=== PATIENT | male | born 2000 | race Caucasian/White ===

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

== ENCOUNTER → 2023-03-10 | Outpatient (CLI) | payer OTHER ==
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
== END | disposition home or self-care (01) ==
LOC: RADXRYALE 13:55
PROVIDERS: ATTEND Physician Assistant
DX: S60.921A Unspecified superficial injury of right hand, initial encounter (principal); X58.XXXA Exposure to other specified factors, initial encounter

== ENCOUNTER → 2023-05-26 | Outpatient (CLI) | payer OTHER ==
--- NOTE | 2023-05-26 11:43 | US ---
EXAMINATION TYPE: US abdomen limited DATE OF EXAM: 05/26/2023 COMPARISON: NONE CLINICAL INDICATION: Male, 22 years old with history of R10.11 right upper quad pain, R94.5 abn labs; abnormal labs, drug and alcohol use TECHNIQUE: Multiple sonographic images of the right upper quadrant are obtained. FINDINGS: EXAM MEASUREMENTS: Liver Length: 12.2 cm Gallbladder Wall: 0.3 cm CBD: 0.1 cm Right Kidney: 9.6x4.1x5.4 cm [employer] MANAGER NOTES: Pancreas: Tail obscured by overlying bowel gas Liver: Within normal limits no evidence for ductal dilation or mass. Gallbladder: wnl Evidence for sonographic Koo's sign: No CBD: wnl Right Kidney: No hydronephrosis or masses seen exam slightly limited by bowel gas IMPRESSION: No evidence for acute process.
== END | disposition home or self-care (01) ==
LOC: RADUSWWP 10:50
PROVIDERS: ATTEND Family Medicine
DX: R10.11 Right upper quadrant pain (principal); R94.5 Abnormal results of liver function studies
CPT/HCPCS: 76705

== ENCOUNTER 2023-06-10 16:27 | Emergency (ER) | payer OTHER ==
--- NOTE | 2023-06-10 16:43 | ED ---
General Adult HPI - General Source: patient, RN notes reviewed Mode of arrival: ambulatory Limitations: no limitations <Sophia Larkin - Last Filed: 06/10/23 16:41> <Jose Yuan - Last Filed: 06/10/23 20:01> - General Chief complaint: GI Bleed Stated complaint: blood in stool - History of Present Illness Initial comments: 22-year-old male presents emergency department chief complaint of GI bleed. He notes that today he went to have a bowel movement after work and noticed bright red blood in the toilet. No history of this. He denies any abdominal pain, rectal pain. Denies fever, chills. (Sophia Larkin) 22-year-old male presents to the ED with a chief complaint of blood in the stool. Patient states he had a bowel movement today and noticed some bright red blood in the stool. No abdominal pain with this. No rectal pain. No changes in bowel or bladder habits. No fever. No chest pain or shortness of breath. No dizziness or lightheadedness. No other complaints. (Jose Yuan) - Related Data Home Medications Medication Instructions Recorded Confirmed Ibuprofen [Motrin Ib] 400 mg PO DAILY 11/11/18 11/11/18 Previous Rx's Medication Instructions Recorded Amoxicillin 500 mg PO Q12HR 10 Days #20 cap 11/11/18 Allergies Allergy/AdvReac Type Severity Reaction Status Date / Time latex Allergy PASSES OUT Verified 06/10/23 16:40 Review of Systems ROS Other: All systems not noted in ROS Statement are negative. <Sophia Larkin - Last Filed: 06/10/23 16:41> ROS Other: All systems not noted in ROS Statement are negative. <Jose Yuan - Last Filed: 06/10/23 20:01> ROS Statement: Those systems with pertinent positive or pertinent negative responses have been documented in the HPI. Past Medical History Past Medical History: No Reported History History of Any Multi-Drug Resistant Organisms: None Reported Past Surgical History: No Surgical Hx Reported Past Psychological History: No Psychological Hx Reported Past Alcohol Use History: None Reported Past Drug Use History: Marijuana <Sophia Larkin - Last Filed: 06/10/23 16:41> General Exam Limitations: no limitations <Sophia Larkin - Last Filed: 06/10/23 16:41> General appearance: alert, in no apparent distress Eye exam: Present: normal appearance Neck exam: Present: normal inspection GI/Abdominal exam: Present: soft (No Tenderness to palpation. No rebound guarding or rigidity.), normal bowel sounds exam: Present: other (No external hemorrhoids. No gross bleeding. No internal hemorrhoids palpated.) Neurological exam: Present: alert, oriented X3 <Jose Yuan - Last Filed: 06/10/23 20:01> - General Exam Comments Initial Comments: Visual Physical Exam Vital signs reviewed General: Well-appearing, nontoxic, no acute distress. Head: Normocephalic, atraumatic Eyes: PERRLA, EOMI ENT: Airway patent Chest: Nonlabored breathing Skin: No visual rash, normal skin tone Neuro: Alert and oriented 3 Musculoskeletal: No gross abnormalities (Sophia Larkin) Course Vital Signs 06/10/23 06/10/23 16:38 18:35 Temperature 98.4 F Pulse Rate 108 H 98 Respiratory 18 18 Rate Blood Pressure 149/80 136/81 O2 Sat by Pulse 99 97 Oximetry Medical Decision Making <Sophia Larkin - Last Filed: 06/10/23 16:41> - Lab Data Result diagrams: 06/10/23 17:34 06/10/23 17:34 <Jose Yuan - Last Filed: 06/10/23 20:01> - Medical Decision Making Quick note performed by Sophia Larikn PA-C (Sophia Larkin) Was pt. sent in by a medical professional or institution ([facility], [facility], urgent care, hospital, or penitentiary...) When possible be specific @ -No Did you speak to anyone other than the patient for history (EMS, parent, family, police, friend...)? What history was obtained from this source @ -No Did you review nursing and triage notes (agree or disagree)? Why? @ -I reviewed and agree with nursing and triage notes Were old charts reviewed (outside hosp., previous admission, EMS record, old EKG, old radiological studies, urgent care reports/EKG's, penitentiary records)? Report findings @ -No old charts were reviewed Differential Diagnosis (chest pain, altered mental status, abdominal pain women, abdominal pain men, vaginal bleeding, weakness, fever, dyspnea, syncope, headache, dizziness, GI bleed, back pain, seizure, CVA, palpatations, mental health, musculoskeletal)? @ -Differential GI Bleed: Esophageal varices, aortoenteric fistula, Debora-Monsivais, gastritis, peptic ulcer disease, diverticulosis, inflammatory bowel disease, hemorrhoids, fissure, colitis, malignancy, Meckels diverticulum, this is not meant to be an all- inclusive list. EKG interpreted by me (3pts min.). @ -None X-rays interpreted by me (1pt min.). @ -[None don] CT intepreted by me (1pt min.). @ -[None don] U/S intrpreted by me (1pt. min.). @ -[None don] What teting was considered but not performed or refused? (CT, X-rays, U/S, lab s)? Why? @ -[None] Wht mes were considered but not given or refused? Why? @ -[None] Di youdiscuss the management of the patient with other professionals (professionals i.e. , PA, [facility] [facility], lab, RT, psych nurse, social service liaison, admiralty lawyer, teacher, [place] customs and border officer, case managers)? Give summary @ -[No] Was moing cessation discussed for >3mins.? @ -[No] Was riical care preformed (if so, how long)? @ -[No] Werethre social determinants of health that impacted care today? How? (Homelessness, low income, unemployed, alcoholism, drug addiction, transportation, low edu. Level, literacy, decrease access to med. care, [facility], rehab)? @ -[No] Was rohini de-escalation of care discussed even if they declined (Discuss DNR or withdrawal of care, Hospice)? DNR status @ -[No] Whatcomorbidities impacted this encounter? (DM, HTN, Smoking, COPD, CAD, Cancer, CVA, ARF, Chemo, Hep., AIDS, mental health diagnosis, sleep apnea, morbid obesity)? @ -[None] Wa patent admitted / discharged? Hospital course, mention meds given and route, prescriptions, significant lab abnormalities, going to OR and other pertinent info. @ -discharge 22-year-old male presenting with one episode of appearance of blood in the toilet after having a bowel movement earlier today. Laboratory studies reviewed. Labs including CBC, CMP unremarkable. Occult blood negative. Patient does admit to eating a lot of beets last night. At this time, patient discharged home in stable condition. Discussed return precautions patient verbalizes agreement. Undiagnosed new problem with uncertain prognosis? @ -No Drug Therapy requiring intensive monitoring for toxicity (Heparin, Nitro, Insulin, Cardizem)? @ -No Were any procedures done? @ -No Diagnosis/symptom? @ -Bloody stool appearanceAcute, r Chronic, or Acute on Chronic? @ -AcuteUncomplcated (without systemic symptoms) or Complicated (systemic symptoms)? @ -UncomplicatedSide efects of treatment? @ -[No] Exacrbtion, Progression, or Severe Exacerbation? @ -[No] Pose athreat to life or bodily function? How? (Chest pain, [place], [place], pneumonia, PE, COPD, DKA, ARF, appy, cholecystitis, CVA, Diverticulitis, Homicidal, Suicidal, threat to staff... and all critical care pts) @ -[No] (Jose Yuan) - Lab Data Lab Results 06/10/23 06/10/23 06/10/23 Range/Units 17:34 17:34 17:34 WBC 7.2 (3.8-10.6) k/uL RBC 4.86 (4.30-5.90) m/uL Hgb 13.9 (13.0-17.5) gm/dL Hct 43.1 (39.0-53.0) % MCV 88.8 (80.0-100.0) fL MCH 28.5 (25.0-35.0) pg MCHC 32.1 (31.0-37.0) g/dL RDW 12.4 (11.5-15.5) % Plt Count 225 (150-450) k/uL MPV 7.1 Neutrophils % 67 % Lymphocytes % 22 % Monocytes % 7 % Eosinophils % 0 % Basophils % 1 % Neutrophils # 4.8 (1.3-7.7) k/uL Lymphocytes # 1.6 (1.0-4.8) k/uL Monocytes # 0.5 (0-1.0) k/uL Eosinophils # 0.0 (0-0.7) k/uL Basophils # 0.0 (0-0.2) k/uL PT 11.8 (10.0-12.5) sec INR 1.1 (<1.2) APTT 25.5 (22.0-30.0) sec Sodium 138 (137-145) mmol/L Potassium 4.2 (3.5-5.1) mmol/L Chloride 104 (98-107) mmol/L Carbon Dioxide 22 (22-30) mmol/L Anion Gap 12 mmol/L BUN 13 (9-20) mg/dL Creatinine 0.86 (0.66-1.25) mg/dL Est GFR (CKD-EPI)AfAm >90 (>60 ml/min/1.73 sqM) Est GFR (CKD-EPI)NonAf >90 (>60 ml/min/1.73 sqM) Glucose 96 (74-99) mg/dL Calcium 9.9 (8.4-10.2) mg/dL Total Bilirubin 0.4 (0.2-1.3) mg/dL AST 32 (17-59) U/L ALT 48 (4-49) U/L Alkaline Phosphatase 80 (38-126) U/L Total Protein 7.5 (6.3-8.2) g/dL Albumin 4.7 (3.5-5.0) g/dL Lipase 107 (23-300) U/L Stool Occult Blood (Negative) Blood Type Blood Type Recheck Bld Type Recheck Status Antibody Screen Spec Expiration Date 06/10/23 06/10/23 Range/Units 17:34 18:11 WBC (3.8-10.6) k/uL RBC (4.30-5.90) m/uL Hgb (13.0-17.5) gm/dL Hct (39.0-53.0) % MCV (80.0-100.0) fL MCH (25.0-35.0) pg MCHC (31.0-37.0) g/dL RDW (11.5-15.5) % Plt Count (150-450) k/uL MPV Neutrophils % % Lymphocytes % % Monocytes % % Eosinophils % % Basophils % % Neutrophils # (1.3-7.7) k/uL Lymphocytes # (1.0-4.8) k/uL Monocytes # (0-1.0) k/uL Eosinophils # (0-0.7) k/uL Basophils # (0-0.2) k/uL PT (10.0-12.5) sec INR (<1.2) APTT (22.0-30.0) sec Sodium (137-145) mmol/L Potassium (3.5-5.1) mmol/L Chloride (98-107) mmol/L Carbon Dioxide (22-30) mmol/L Anion Gap mmol/L BUN (9-20) mg/dL Creatinine (0.66-1.25) mg/dL Est GFR (CKD-EPI)AfAm (>60 ml/min/1.73 sqM) Est GFR (CKD-EPI)NonAf (>60 ml/min/1.73 sqM) Glucose (74-99) mg/dL Calcium (8.4-10.2) mg/dL Total Bilirubin (0.2-1.3) mg/dL AST (17-59) U/L ALT (4-49) U/L Alkaline Phosphatase (38-126) U/L Total Protein (6.3-8.2) g/dL Albumin (3.5-5.0) g/dL Lipase (23-300) U/L Stool Occult Blood Negative (Negative) Blood Type O Positive Blood Type Recheck O Pos Bld Type Recheck Status No Antibody Screen NEGATIVE Spec Expiration Date 06/13/2023 - 2333 Disposition <Sophia Larkin - Last Filed: 06/10/23 16:41> Is patient prescribed a controlled substance at d/c from ED?: No Time of Disposition: 20:01 <Jose Yuan - Last Filed: 06/10/23 20:01> Clinical Impression: Blood in stool Disposition: HOME SELF-CARE Additional Instructions: Please return to the Emergency Department if symptoms worsen or any other concerns. Follow up with your primary care provider. Referrals: Ignacio Sorto DO [Primary Care Provider] - 1-2 days
[2023-06-10 16:55] VITALS: RESP 18; TEMP 98.4
[2023-06-10 17:51] LABS: Basophils % (A) 1 %; Eosinophils % (A) 0 %; HCT 43.1 % (39.0-53.0); HGB 13.9 gm/dL (13.0-17.5); Lymphocytes # (A) 1.6 k/uL (1.0-4.8); Lymphocytes % (A) 22 %; MCH 28.5 pg (25.0-35.0); MCHC 32.1 g/dL (31.0-37.0); MCV 88.8 fL (80.0-100.0); Mean Platelet Volume 7.1; Monocytes # (A) 0.5 k/uL (0-1.0); Monocytes % (A) 7 %; Neutrophils # (A) 4.8 k/uL (1.3-7.7); Neutrophils % (A) 67 %; Platelet Count 225 k/uL (150-450); RBC 4.86 m/uL (4.30-5.90); RDW 12.4 % (11.5-15.5); WBC 7.2 k/uL (3.8-10.6)
[2023-06-10 18:09] LABS: INR 1.1 (<1.2); Partial Thromboplastin Time 25.5 sec (22.0-30.0); Prothrombin Time 11.8 sec (10.0-12.5)
[2023-06-10 18:31] LABS: ALT 48 U/L (4-49); AST 32 U/L (17-59); African American GFR (CKD) >90 (>60 ml/min/1.73 sqM); Albumin 4.7 g/dL (3.5-5.0); Alkaline Phosphatase 80 U/L (38-126); Anion Gap 12 mmol/L; Blood Urea Nitrogen 13 mg/dL (9-20); Calcium 9.9 mg/dL (8.4-10.2); Carbon Dioxide 22 mmol/L (22-30); Chloride 104 mmol/L (98-107); Glucose 96 mg/dL (74-99); Lipase 107 U/L (23-300); Non-African American GFR(CKD) >90 (>60 ml/min/1.73 sqM); Potassium 4.2 mmol/L (3.5-5.1); Sodium 138 mmol/L (137-145); Total Bilirubin 0.4 mg/dL (0.2-1.3); Total Protein 7.5 g/dL (6.3-8.2)
[2023-06-10 18:51] VITALS: BP 136/81; PULSE 98
== END 2023-06-10 20:10 | disposition home or self-care (01) ==
LOC: EC 16:27
DX: K92.1 Melena (principal); F12.90 Cannabis use, unspecified, uncomplicated; Z91.040 Latex allergy status
CPT/HCPCS: 36415; 80053; 82272; 83690; 85025; 85610; 85730; 86850; 86900; 86901; 99284

== ENCOUNTER 2024-03-16 17:01 | Emergency (ER) | payer OTHER ==
[2024-03-16 17:04] VITALS: PULSE 84
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
--- NOTE | 2024-03-16 18:32 | XR ---
EXAMINATION TYPE: XR tibia fibula RT DATE OF EXAM: 03/16/2024 COMPARISON: 03/15/2003 HISTORY: Abrasion lateral distal right tibia and fibula TECHNIQUE: 2 view right tibia and fibula FINDINGS: No acute fracture or dislocation evident. Soft tissues are normal. No radiopaque foreign shalini dies evident. Joint spaces are preserved. Follow up exams can be performed 7-10 days from acute trauma for continued pain. IMPRESSION: 1. No acute osseous abnormalities tibia and fibula. [facility], , 03/16/2024 6:30 PM
[2024-03-16 19:04] VITALS: BP 122/81; RESP 18; TEMP 98.3
== END 2024-03-16 19:18 | disposition home or self-care (01) ==
LOC: EC 17:01
DX: S89.91XA Unspecified injury of right lower leg, initial encounter
CPT/HCPCS: 99283

== ENCOUNTER 2024-12-05 18:58 | Inpatient (IN) | payer OTHER, MEDICAID ==
--- NOTE | 2024-12-05 20:01 | ED ---
General Adult HPI <GermanKeri - Last Filed: 12/05/24 22:06> - General Source: patient, EMS Mode of arrival: EMS Limitations: no limitations <Eugene Duffy - Last Filed: 12/07/24 16:20> - General Chief complaint: Psychiatric Symptoms Stated complaint: mental health Time Seen by Provider: 12/05/24 19:00 - History of Present Illness Initial comments: Patient presents to the ED by ambulance for evaluation. Patient states that he has been having a lot of "stress" in his life, and he states that he has felt depressed and has been having suicidal thoughts. Patient states that he has felt this way for the past year or so. Patient denies suicidal plan or attempt. Patient admits to occasional alcohol use, but he denies any alcohol use today. Patient also admits to marijuana use, and he states that he last used marijuana earlier today. Patient denies any other illicit drug use. Patient denies medication abuse or overdose, trauma or injury, homicidal ideations, hallucinations, any pain, fever or chills, dyspnea, dizziness, nausea or vomiting, or any other symptoms or complaints. (Eugene Duffy) - Related Data Previous Rx's Medication Instructions Recorded QUEtiapine [SEROquel] 25 mg PO HS 30 Days tab 12/07/24 buPROPion XL [Wellbutrin XL] 150 mg PO DAILY 30 Days tab 12/07/24 Allergies Allergy/AdvReac Type Severity Reaction Status Date / Time latex Allergy PASSES OUT Verified 12/05/24 19:58 Review of Systems ROS Other: All systems not noted in ROS Statement are negative. <EnglishKeri - Last Filed: 12/05/24 22:06> ROS Other: All systems not noted in ROS Statement are negative. <Eugene Duffy - Last Filed: 12/07/24 16:20> ROS Statement: Those systems with pertinent positive or pertinent negative responses have been documented in the HPI. Past Medical History Past Medical History: No Reported History History of Any Multi-Drug Resistant Organisms: None Reported Past Surgical History: No Surgical Hx Reported Past Psychological History: No Psychological Hx Reported Smoking Status: Current every day smoker Past Alcohol Use History: None Reported Past Drug Use History: Marijuana <Eugene Duffy - Last Filed: 12/07/24 16:20> General Exam Limitations: no limitations General appearance: alert, in no apparent distress Head exam: Present: atraumatic Eye exam: Present: normal appearance, PERRL, EOMI ENT exam: Present: mucous membranes moist Respiratory exam: Present: normal lung sounds bilaterally. Absent: respiratory distress, wheezes, rales, rhonchi, stridor Cardiovascular Exam: Present: regular rate, normal rhythm, normal heart sounds, other (Normal radial pulses bilaterally) GI/Abdominal exam: Present: soft. Absent: distended, tenderness, guarding Extremities exam: Absent: pedal edema Neurological exam: Present: alert, oriented X3. Absent: motor sensory deficit Skin exam: Present: warm, dry, normal color <Eugene Duffy - Last Filed: 12/07/24 16:20> Course <Eugene Duffy - Last Filed: 12/07/24 16:20> Vital Signs 12/05/24 12/05/24 12/05/24 19:41 22:59 23:25 Temperature 98.4 F 97.9 F 98.8 F Pulse Rate 65 92 Pulse Rate [ 89 Right] Respiratory 20 17 18 Rate Blood Pressure 134/78 131/76 Blood Pressure 129/68 [Right Arm] O2 Sat by Pulse 99 99 97 Oximetry - Reevaluation(s) Reevaluation #1: 12/05/24 20:54 Patient was endorsed to oncoming ED physician Dr. Purvis (secondary to shift change) with EPS evaluation still pending. Dr. Purvis to take over care of the patient at this time. (Eugene Duffy) Medical Decision Making <Keri Purvis - Last Filed: 12/05/24 22:06> <Eugene Duffy - Last Filed: 12/07/24 16:20> - Medical Decision Making Was patient admitted / discharged? Hospital course, mention meds given and route, prescriptions, significant lab abnormalities, going to OR and other pertinent info. @Admitted to Psychiatric Floor - Patient signed out to myself pending EPS evaluation. Here for SI. Medically cleared. Undiagnosed new problem with uncertain prognosis? @ -[No] Drug Therapy requiring intensive monitoring for toxicity (Heparin, Nitro, Insulin, Cardizem)? @ -[No] Were any procedures done? @ -[No] Diagnosis/symptom? Suicidal ideation Acute, or Chronic, or Acute on Chronic? @acute Uncomplicated (without systemic symptoms) or Complicated (systemic symptoms)? uncomplicated Side effects of treatment? @ -[No] Exacerbation, Progression, or Severe Exacerbation? @ -[No] Poses a threat to life or bodily function? How? (Chest pain, [place], [place], pneumonia, PE, COPD, DKA, ARF, appy, cholecystitis, CVA, Diverticulitis, Homicidal, S uicidal, threat to staff... and all critical care pts) @Yes (German,Keri) Was pt. sent in by a medical professional or institution (, GEORGINA, LAN SPECIALIST, urgent care, hospital, or long term...) When possible be specific @ -No Did you speak to anyone other than the patient for history (EMS, parent, family, police, friend...)? What history was obtained from this source @ -No Did you review nursing and triage notes (agree or disagree)? Why? @ -I reviewed and agree with nursing and triage notes Were old charts reviewed (outside hosp., previous admission, EMS record, old EKG, old radiological studies, urgent care reports/EKG's, long term records)? Report findings @ -No old charts were reviewed Differential Diagnosis (chest pain, altered mental status, abdominal pain women, abdominal pain men, vaginal bleeding, weakness, fever, dyspnea, syncope, headache, dizziness, GI bleed, back pain, seizure, CVA, palpatations, mental health, musculoskeletal)? @ -Depression, anxiety, suicidal ideations, suicidal risk, psychiatric disease, drug abuse, alcohol abuse, this is not meant to be a complete list. EKG interpreted by me (3pts min.). @ -None done X-rays interpreted by me (1pt min.). @ -None done CT interpreted by me (1pt min.). @ -None done U/S interpreted by me (1pt. min.). @ -None done What testing was considered but not performed or refused? (CT, X-rays, U/S, labs)? Why? @ -None What meds were considered but not given or refused? Why? @ -None Did you discuss the management of the patient with other professionals (professionals i.e. GEORGINA Mclaughlin, LAN SPECIALIST, lab, RT, psych nurse, clinical social work therapist, brick washer, teacher, security flex utility officer, rifle case repairer)? Give summary @ -No Was smoking cessation discussed for >3mins.? @ -No Was critical care preformed (if so, how long)? @ -No Were there social determinants of health that impacted care today? How? (Homelessness, low income, unemployed, alcoholism, drug addiction, transportation, low edu. Level, literacy, decrease access to med. care, longterm, rehab)? @ -No Was there de-escalation of care discussed even if they declined (Discuss DNR or withdrawal of care, Hospice)? DNR status @ -No What co-morbidities impacted this encounter? (DM, HTN, Smoking, COPD, CAD, Cancer, CVA, ARF, Chemo, Hep., AIDS, mental health diagnosis, sleep apnea, morbid obesity)? @ -None Was patient admitted / discharged? Hospital course, mention meds given and route, prescriptions, significant lab abnormalities, going to OR and other pertinent info. @ -Patient was endorsed to oncoming ED physician Dr. Purvis (secondary to shift change) with EPS evaluation still pending. Dr. Purvis to take over care of the patient at this time. (Eugene Duffy) - Lab Data Lab Results 12/05/24 12/05/24 12/05/24 Range/Units 21:04 21:31 21:31 Urine Color Colorless Urine Appearance Clear (Clear) Urine pH 6.0 (5.0-8.0) Ur Specific [place] 1.019 (1.001-1.035) Urine Protein Negative (Negative) Urine Glucose (UA) Negative (Negative) Urine Ketones 1+ H (Negative) Urine Blood Negative (Negative) Urine Nitrite Negative (Negative) Urine Bilirubin Negative (Negative) Urine Urobilinogen <2.0 (<2.0) mg/dL Ur Leukocyte Esterase Negative (Negative) Urine Opiates Screen Not Detected (NotDetected) Ur Oxycodone Screen Not Detected (NotDetected) Urine Methadone Screen Not Detected (NotDetected) Ur Barbiturates Screen Not Detected (NotDetected) U Tricyclic Antidepress Not Detected (NotDetected) Ur Phencyclidine Scrn Not Detected (NotDetected) Ur Amphetamines Screen Not Detected (NotDetected) U Methamphetamines Scrn Not Detected (NotDetected) U Benzodiazepines Scrn Not Detected (NotDetected) Urine Cocaine Screen Detected H (NotDetected) U Marijuana (THC) Screen Detected H (NotDetected) SARS-CoV-2 (PCR) Not Detected (Not Detectd) Disposition <Keri Purvis - Last Filed: 12/05/24 22:06> Is patient prescribed a controlled substance at d/c from ED?: No <Eugene Duffy - Last Filed: 12/07/24 16:20> Clinical Impression: Suicidal ideations Disposition: TRANSFER TO PSYCH HOSP/UNIT
[2024-12-05 22:14] LABS: Opiate Screen,Urine Not Detected (NotDetected); Phencyclidine Screen,Urine Not Detected (NotDetected)
[2024-12-05 22:15] LABS: Amphetamine Screen,Urine Not Detected (NotDetected); Barbiturate Screen,Urine Not Detected (NotDetected); Benzodiazepines Screen,Urine Not Detected (NotDetected); Cocaine Screen,Urine Detected (NotDetected); Methadone Screen, Urine Not Detected (NotDetected); Oxycodone Screen, Urine Not Detected (NotDetected); Tricyclic Antidepressant,Urine Not Detected (NotDetected); Urn Cannabinoid Scrn Detected (NotDetected)
[2024-12-05] MEDS ORDERED: LORazepam 1 MG TAB PO PRN (22:42)
[2024-12-05] MEDS ORDERED: ACETAMINOPHEN TAB 325 MG TAB PO PRN (22:42)
[2024-12-05] MEDS ORDERED: traZODone HCL 50 MG TAB PO PRN (22:42)
[2024-12-05] MEDS ORDERED: HALOPERIDOL LACTATE 5 MG/ML 1 ML VIAL IM PRN (22:42)
[2024-12-05] MEDS ORDERED: haloperidoL 5 MG TAB PO PRN (22:42)
[2024-12-05] MEDS ORDERED: IBUPROFEN 600 MG TAB PO PRN (22:42)
[2024-12-05] MEDS ORDERED: LORazepam 2 MG/ML INJ IM PRN (22:42)
[2024-12-05] MEDS ORDERED: MAGNESIUM HYDROXIDE 2,400 MG/30 ML CUP PO PRN (22:42)
[2024-12-05] MEDS ORDERED: MAG HYDROX/AL HYDROX/SIMETH 355 ML BOTTLE PO PRN (22:42)
[2024-12-05 23:28] VITALS: RESP 18
[2024-12-06 02:45] LABS: Appearance,Urine Clear (Clear); Bilirubin,Urine Negative (Negative); Blood,Urine Negative (Negative); Color,Urine Colorless; Glucose,Urine (UA) Negative (Negative); Ketones,Urine 1+ (Negative); Leukocyte Esterase,Urine Negative (Negative); Nitrite,Urine Negative (Negative); Protein,Urine Negative (Negative); Specific Gravity,Urine 1.019 (1.001-1.035); Urobilinogen,Urine <2.0 mg/dL (<2.0)
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
[2024-12-06] MEDS: buPROPion XL 150 MG TAB.ER.24H PO SCH (10:57)
[2024-12-06] MEDS: NICOTINE 14MG/24HR PATCH TRANSDERM SCH (12:45)
[2024-12-06 14:40] VITALS: BMI 22.1
[2024-12-06] MEDS: QUEtiapine 25 MG TAB PO SCH (21:07)
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
[2024-12-07 10:05] VITALS: BP 107/67; PULSE 66; TEMP 97.8
== END 2024-12-07 11:11 | disposition home or self-care (01) | DRG 885 ==
LOC: EC 18:58 → 3MHU 22:31
PROVIDERS: ADMIT Psychiatry & Neurology Psychiatry; ATTEND Psychiatry & Neurology Psychiatry
DX: F33.1 Major depressive disorder, recurrent, moderate (principal); R45.851 Suicidal ideations; F10.10 Alcohol abuse, uncomplicated; F12.10 Cannabis abuse, uncomplicated; G47.00 Insomnia, unspecified; F41.9 Anxiety disorder, unspecified; F17.210 Nicotine dependence, cigarettes, uncomplicated; Z91.040 Latex allergy status; Z65.3 Problems related to other legal circumstances; Z79.899 Other long term (current) drug therapy; Z91.51 Personal history of suicidal behavior
CPT/HCPCS: 80306; 81003; 82075; 87635; 99285